=== PATIENT | female | born 1935 | race Caucasian/White ===

== ENCOUNTER 2019-11-14 15:39 | Inpatient (IN) | payer MEDICARE, OTHER ==
[2019-11-14] VITALS (9 sets, daily range): BP systolic 79–100; BP diastolic 35–53
[~2019-11-14] VITALS: Ht 167.6 cm; Wt 105.6 kg
[2019-11-14] MEDS ORDERED: OXYMETAZOLINE NASAL SPRAY 0.05%,30ML ONE (16:02)
[2019-11-14] MEDS ORDERED: PHENYLEPHRINE NASAL 1%, 15ML SPRAY ONE (16:03)
--- NOTE | 2019-11-14 16:07 | NUR ---
BIB BY TAYLOR FROM [facility] EMERGENCY DEPARTMENT FOR "ENT CONSULT"/"ABNORMAL LABS". PATIENT REPORTS HEAVY NOSE BLEED SINCE 10AM THIS MORNING. ASSESSED AT THE MO AND FOUND TO HAVE HEMOGLOBIN OF 4.2/ INR OF 6.2. MO ER PROVIDER DID NOT WANT TO ASSES TAMPONADED NOSE BLEED D/T ABNORMAL LABS AND NO ENT SPECIALIST IN HOUSE. GIVEN MG OF VITAMIN K/1L NS ON ARRIVAL ALERT/ORIENTED, NO BLEEDING FROM SITE (RIGHT NARE), HR 50-60, SBP 80 (MANUAL)
--- NOTE | 2019-11-14 16:08 | NUR ---
NOSE PACKING REMOVED BY PROVIDER-SMALL BLEED NOTED-AFRIN SPARYED ADMINISTERED BY PROVIDER, EPITAXIS NOSE CLAMP APPLIED
[2019-11-14] MEDS ORDERED: OXYMETAZOLINE NASAL SPRAY 0.05%, 15ML NAS ONE (16:30)
--- NOTE | 2019-11-14 16:55 | NUR ---
FECAL OCCULT VIA PROVIDER POSITIVE EPITAXIS CONTROLLED WITH AFRIN/NOSE CLAMP ONTO BEDPAN TO VOID-ROUGHLY 200ML HR REMAINS 50-70, MONITOR UNABLE TO REGISTER BP-MANUAL BP 90/45 SECOND 20 GA TO LEFT ARM PLACED POC REVIEWED WITH PROVIDER- TO ADMIN 2 UNITS PRBCS-, PROVIDER WOULD LIKE NO FURTHER VIT K (REPORTING ANALYST CLARIFIED PATIENT ONLY RECEIVED 5MG EARLIER FROM [facility])
[2019-11-14] MEDS: PANTOPRAZOLE 80 MG in SODIUM CHLORIDE 0.9% 100 ML IV SCH ×2 (16:59→21:01)
[2019-11-14] MEDS ORDERED: PANTOPRAZOLE 80 MG in SODIUM CHLORIDE 0.9% 50 ML IVPB ONE (16:59)
[2019-11-14 17:03] LABS: ANION GAP 9 mmol/L (5-15); CALCIUM 8.7 mg/dL (8.5-10.1); CHLORIDE 109 mmol/L (98-107); CREATININE 2.11 mg/dL (0.55-1.02)
--- NOTE | 2019-11-14 17:07 | NUR ---
RECEIVED CRITICAL RESULTS: H/H: 4.4,13.2, BUN 137 PROVIDER MADE AWARE
[2019-11-14] MEDS ORDERED: PHYTONADIONE 10 MG/ML, 1ML ONE (17:24)
[2019-11-14] MEDS ORDERED: SODIUM CHLORIDE 0.9% 1,000 ML IV SCH (17:30)
[2019-11-14 17:40] LABS: INTERNATIONAL NORMALIZED RATIO 5.58 (0.93-1.1); PROTHROMBIN TIME 60.2 Seconds (9.6-11.5)
[2019-11-14] MEDS: SODIUM CHLORIDE 0.9% 1,000 ML IV SCH (17:50)
--- NOTE | 2019-11-14 17:50 | NUR ---
pharmacy called for protonix bolus and gtt- to deliver shortly
--- NOTE | 2019-11-14 17:50 | NUR ---
AFTER BLOOD ADMIN CONSENT OBTAINED-1 UNIT PRBC STARTED ON IV PUMP REPEAT VS: 60-70, 90/35 (MANUAL) DR. VALVERDE AT BEDSIDE TO ADMIT ATEMPTING TO COMPLETE EXHAUSTIVE MED RECC
[2019-11-14] MEDS ORDERED: ALBUTEROL/IPRATROPIUM 2.5MG/0.5MG, 3 ML HHN PRN (18:00)
[2019-11-14] MEDS ORDERED: ONDANSETRON 2MG/ML, 2ML IVPush PRN (18:00)
[2019-11-14] MEDS ORDERED: PHENYLEPHRINE NASAL 1%, 15ML SPRAY NAS PRN (18:00)
--- NOTE | 2019-11-14 18:15 | NUR ---
Protonix administered per emar Med recc updated (on metoprolol-thus hr normal) Gi at bedside- no egd at this time as she is too high risk-will continue to follow Report to HARESH HENSON
[2019-11-14 18:21] LABS: FREE T4 (FREE THYROXINE) 1.07 ng/dL (0.76-1.46); TROPONIN I < 0.015 ng/mL (0.000-0.045)
[2019-11-14] MEDS ORDERED: OCTR50DI2 IM (18:34)
[2019-11-14] MEDS ORDERED: LISI2.5T PO (18:34)
[2019-11-14] MEDS ORDERED: METO25TA35 PO (18:34)
[2019-11-14] MEDS ORDERED: PANT20TA3 PO (18:34)
[2019-11-14] MEDS ORDERED: BUDE10.26 INH (18:34)
[2019-11-14] MEDS ORDERED: FLUT1DIS IH (18:34)
[2019-11-14] MEDS ORDERED: ALBU0.63 NEB (18:34)
[2019-11-14] MEDS ORDERED: FURO80TA3 PO (18:34)
[2019-11-14] MEDS ORDERED: ROSU10TA2 PO (18:34)
[2019-11-14] MEDS ORDERED: WARF-36 PO (18:34)
[2019-11-14] MEDS ORDERED: LEVO75TA5 PO (18:34)
--- NOTE | 2019-11-14 19:00 | NUR ---
LARGE FORMED BLACK STOOL NOTED-FULL PERICARE PERFORMED
--- NOTE | 2019-11-14 19:39 | NUR ---
CLARIFIED WHEN TO REMOVE EPITAXIS CLAMP-MD REPORTS "WHEN INR IMPROVED"
[2019-11-14] MEDS: BUDESONIDE 0.5 MG/2 ML INHA INH SCH (21:00)
[2019-11-14] MEDS: LATANOPROST OPHTH 0.005%, 2.5ML EACHEYE SCH (21:03)
[2019-11-14 22:20] LABS: MICROSCOPIC AUTO
[2019-11-14 22:23] LABS: CULTURE INDICATED? YES
[2019-11-14 22:30] LABS: CREATININE,URINE RANDOM 25.3 mg/dL
[2019-11-14 23:55] LABS: TROPONIN I < 0.015 ng/mL (0.000-0.045)
[2019-11-15] VITALS (17 sets, daily range): BP systolic 81–114; BP diastolic 43–78
[2019-11-15] MEDS: PANTOPRAZOLE 80 MG in SODIUM CHLORIDE 0.9% 100 ML IV SCH ×3 (03:59→14:45)
[2019-11-15] MEDS: SODIUM CHLORIDE 0.9% 1,000 ML IV SCH (06:10)
[2019-11-15 06:13] LABS: MEAN CORPUSCULAR HEMOGLOBIN 31.8 pg (27.0-34.8); MEAN CORPUSCULAR HGB CONC 33.1 g/dL (32.4-35.8); MEAN CORPUSCULAR VOLUME 95.9 fL (80-100); MEAN PLATELET VOLUME 6.6 fL (7.4-10.4); PLATELET COUNT 130 x10^3/uL (130-400); RED BLOOD COUNT 1.59 x10^6/uL (3.82-5.3); RED CELL DISTRIBUTION WIDTH 21.9 % (9.6-15.2)
[2019-11-15 06:19] LABS: ANION GAP 9 mmol/L (5-15); CALCIUM 8.5 mg/dL (8.5-10.1); CHLORIDE 113 mmol/L (98-107)
[2019-11-15 06:24] LABS: CREATININE 1.96 mg/dL (0.55-1.02)
[2019-11-15 06:32] LABS: MD YES
[2019-11-15] MEDS: CEFTRIAXONE PMX 1GM/50ML 50 ML IV SCH (06:34)
[2019-11-15] MEDS: LEVOTHYROXINE 75 MCG TABLET PO SCH (06:34)
[2019-11-15 06:35] LABS: BASOS#(MANUAL) 0.04 x10^3/uL (0-0.1); BASOS% (MANUAL) 1 % (0-1); LYMPH#(MANUAL) 0.66 x10^3/uL (1-3.4); LYMPHS% (MANUAL) 17 % (22-44); MONOS#(MANUAL) 0.35 x10^3/uL (0.3-2.7); MONOS% (MANUAL) 9 % (2-9); NRBC % (MANUAL) 1 % (0-1); SEG#(MANUAL) 2.85 x10^3/uL (1.8-6.8); SEGS% (MANUAL) 73 % (42-75)
[2019-11-15 06:36] LABS: ANISOCYTOSIS 2+; OVALOCYTES 1+; POLYCHROMASIA 1+
[2019-11-15 06:39] LABS: <PLATELET ESTIMATE> ADEQUATE; <PLT MORPHOLOGY> NORMAL PLT MORPH
[2019-11-15] MEDS: BUDESONIDE 0.5 MG/2 ML INHA INH SCH ×2 (11:15→20:44)
[2019-11-15 12:42] LABS: INTERNATIONAL NORMALIZED RATIO 2.45 (0.93-1.1); PROTHROMBIN TIME 26.2 Seconds (9.6-11.5)
[2019-11-15] MEDS: TIMOLOL OPHTH 0.5%, 5ML EACHEYE SCH (13:57)
[2019-11-15] MEDS ORDERED: FUROSEMIDE 20 MG/2 ML IV ONE (20:00)
[2019-11-15] MEDS: LATANOPROST OPHTH 0.005%, 2.5ML EACHEYE SCH (22:14)
[2019-11-16] MEDS: PANTOPRAZOLE 80 MG in SODIUM CHLORIDE 0.9% 100 ML IV SCH ×3 (00:34→19:51)
[2019-11-16 02:08] LABS: MEAN CORPUSCULAR HEMOGLOBIN 31.4 pg (27.0-34.8); MEAN CORPUSCULAR HGB CONC 33.3 g/dL (32.4-35.8); MEAN CORPUSCULAR VOLUME 94.3 fL (80-100); MEAN PLATELET VOLUME 7.2 fL (7.4-10.4); PLATELET COUNT 128 x10^3/uL (130-400); RED BLOOD COUNT 2.41 x10^6/uL (3.82-5.3)
[2019-11-16 02:19] LABS: ANION GAP 9 mmol/L (5-15); CALCIUM 8.6 mg/dL (8.5-10.1); CHLORIDE 112 mmol/L (98-107); CREATININE 1.77 mg/dL (0.55-1.02)
[2019-11-16 02:40] LABS: MD YES
[2019-11-16 02:45] LABS: EOS#(MANUAL) 0.04 x10^3/uL (0.0-0.4); EOS% (MANUAL) 1 % (1-7); LYMPH#(MANUAL) 0.27 x10^3/uL (1-3.4); LYMPHS% (MANUAL) 7 % (22-44); MONOS#(MANUAL) 0.27 x10^3/uL (0.3-2.7); MONOS% (MANUAL) 7 % (2-9); SEG#(MANUAL) 3.23 x10^3/uL (1.8-6.8); SEGS% (MANUAL) 85 % (42-75)
[2019-11-16 02:46] LABS: ANISOCYTOSIS 1+; MICROCYTOSIS 1+
[2019-11-16 02:47] LABS: <PLATELET ESTIMATE> DECREASED; <PLT MORPHOLOGY> NORMAL PLT MORPH
[2019-11-16 04:00] VITALS: BP 89/54
[2019-11-16] MEDS: LEVOTHYROXINE 75 MCG TABLET PO SCH (05:41)
[2019-11-16] MEDS: CEFTRIAXONE PMX 1GM/50ML 50 ML IV SCH (05:41)
[2019-11-16] MEDS: BUDESONIDE 0.5 MG/2 ML INHA INH SCH ×2 (08:57→19:47)
[2019-11-16] MEDS ORDERED: ALBUTEROL/IPRATROPIUM 2.5MG/0.5MG, 3 ML HHN SCH (09:00)
[2019-11-16] MEDS ORDERED: Enoxaparin 1 mg/kg protocol SQ SCH (10:00)
[2019-11-16] MEDS: TIMOLOL OPHTH 0.5%, 5ML EACHEYE SCH (10:24)
[2019-11-16] MEDS: ENOXAPARIN 100 MG/ML SQ SCH (10:25)
[2019-11-16] MEDS ORDERED: ENOXAPARIN 100 MG/ML SQ SCH (10:30)
[2019-11-16] MEDS ORDERED: [UNRECOGNIZED DRUG - OTHER] PO SCH (10:30)
[2019-11-16 12:30] VITALS: BP 106/67
[2019-11-16 16:00] VITALS: BP 123/71
[2019-11-16 18:48] VITALS: BP 107/72
[2019-11-16] MEDS: ALBUTEROL SULFATE 2.5 MG/3 ML NPPB PRN (19:47)
[2019-11-16] MEDS: LATANOPROST OPHTH 0.005%, 2.5ML EACHEYE SCH (21:09)
[2019-11-17] VITALS (9 sets, daily range): BP systolic 92–128; BP diastolic 46–78
[2019-11-17] MEDS: ALBUTEROL SULFATE 2.5 MG/3 ML NPPB PRN ×2 (00:02→07:01)
[2019-11-17 05:27] LABS: CHLORIDE 114 mmol/L (98-107)
[2019-11-17 05:35] LABS: ALBUMIN 2.4 g/dL (3.4-5.0); ANION GAP 6 mmol/L (5-15); CALCIUM 8.8 mg/dL (8.5-10.1); CREATININE 1.52 mg/dL (0.55-1.02)
[2019-11-17] MEDS: LEVOTHYROXINE 75 MCG TABLET PO SCH (05:45)
[2019-11-17 05:52] LABS: MEAN CORPUSCULAR HEMOGLOBIN 31.7 pg (27.0-34.8); MEAN CORPUSCULAR HGB CONC 33.2 g/dL (32.4-35.8); MEAN CORPUSCULAR VOLUME 95.3 fL (80-100); MEAN PLATELET VOLUME 7.1 fL (7.4-10.4); PLATELET COUNT 119 x10^3/uL (130-400); RED BLOOD COUNT 2.21 x10^6/uL (3.82-5.3)
[2019-11-17 05:54] LABS: RED CELL DISTRIBUTION WIDTH 19.5 % (9.6-15.2)
[2019-11-17] MEDS: CEFTRIAXONE PMX 1GM/50ML 50 ML IV SCH (05:55)
[2019-11-17] MEDS: PANTOPRAZOLE 80 MG in SODIUM CHLORIDE 0.9% 100 ML IV SCH ×2 (06:02→16:39)
[2019-11-17 06:27] LABS: BASOPHILS # (AUTO) 0.01 x10^3/uL (0-0.1); BASOPHILS % (AUTO) 0 % (0-1); EOSINOPHILS # (AUTO) 0.07 x10^3/uL (0-0.4); EOSINOPHILS % (AUTO) 2 % (1-7); LYMPHOCYTES # (AUTO) 0.53 x10^3/uL (1-3.4); LYMPHOCYTES % (AUTO) 14 % (22-44); MD MORPH REVIEW ONLY; MONOCYTES # (AUTO) 0.35 x10^3/uL (0.2-0.8); MONOCYTES % (AUTO) 9 % (2-9); NEUTROPHILS % (AUTO) 74 % (42-75)
[2019-11-17 06:28] LABS: <PLATELET ESTIMATE> DECREASED; <PLT MORPHOLOGY> NORMAL PLT MORPH; ANISOCYTOSIS 1+; MICROCYTOSIS 1+; OVALOCYTES 1+; POLYCHROMASIA 1+
[2019-11-17] MEDS: BUDESONIDE 0.5 MG/2 ML INHA INH SCH ×2 (07:01→21:00)
[2019-11-17] MEDS: TIMOLOL OPHTH 0.5%, 5ML EACHEYE SCH (08:35)
[2019-11-17] MEDS: ENOXAPARIN 100 MG/ML SQ SCH (10:32)
[2019-11-17 13:54] LABS: INTERNATIONAL NORMALIZED RATIO 2.61 (0.93-1.1); PROTHROMBIN TIME 27.9 Seconds (9.6-11.5)
[2019-11-17] MEDS: LATANOPROST OPHTH 0.005%, 2.5ML EACHEYE SCH (20:24)
[2019-11-18] MEDS: ACETAMINOPHEN 325 MG TABLET PO PRN ×2 (00:26→23:30)
[2019-11-18 00:50] VITALS: BP 112/73
[2019-11-18] MEDS: PANTOPRAZOLE 80 MG in SODIUM CHLORIDE 0.9% 100 ML IV SCH ×3 (02:15→22:10)
[2019-11-18 05:23] LABS: INTERNATIONAL NORMALIZED RATIO 2.95 (0.93-1.1); PROTHROMBIN TIME 31.6 Seconds (9.6-11.5)
[2019-11-18 05:25] LABS: ANION GAP 7 mmol/L (5-15); CALCIUM 8.7 mg/dL (8.5-10.1); CHLORIDE 113 mmol/L (98-107); CREATININE 1.38 mg/dL (0.55-1.02); MEAN CORPUSCULAR HEMOGLOBIN 31.7 pg (27.0-34.8); MEAN CORPUSCULAR HGB CONC 32.9 g/dL (32.4-35.8); MEAN CORPUSCULAR VOLUME 96.2 fL (80-100); PLATELET COUNT 127 x10^3/uL (130-400); RED BLOOD COUNT 2.55 x10^6/uL (3.82-5.3); RED CELL DISTRIBUTION WIDTH 19.2 % (9.6-15.2)
[2019-11-18] MEDS: LEVOTHYROXINE 75 MCG TABLET PO SCH (05:36)
[2019-11-18 05:57] LABS: BASOPHILS % (AUTO) 0 % (0-1); EOSINOPHILS % (AUTO) 3 % (1-7); LYMPHOCYTES # (AUTO) 0.47 x10^3/uL (1-3.4); LYMPHOCYTES % (AUTO) 15 % (22-44); MD SCAN; MONOCYTES # (AUTO) 0.26 x10^3/uL (0.2-0.8); MONOCYTES % (AUTO) 8 % (2-9); NEUTROPHILS # (AUTO) 2.25 x10^3/uL (1.8-6.8); NEUTROPHILS % (AUTO) 73 % (42-75)
[2019-11-18 07:34] VITALS: BP 114/71
[2019-11-18] MEDS: TIMOLOL OPHTH 0.5%, 5ML EACHEYE SCH (08:37)
[2019-11-18] MEDS: ENOXAPARIN 100 MG/ML SQ SCH (08:37)
[2019-11-18] MEDS: BUDESONIDE 0.5 MG/2 ML INHA INH SCH ×2 (10:20→19:10)
[2019-11-18 14:28] VITALS: BP 109/61
[2019-11-18] MEDS: FERROUS SULFATE 325 MG TABLET PO SCH (16:49)
[2019-11-18] MEDS: LATANOPROST OPHTH 0.005%, 2.5ML EACHEYE SCH (20:12)
[2019-11-18] MEDS: DOCUSATE 100 MG CAPSULE PO SCH (20:12)
[2019-11-18 20:26] VITALS: BP 99/57
[2019-11-18] MEDS: DIPHENHYDRAMINE 25 MG CAPSULE PO PRN (23:30)
[2019-11-19 02:05] VITALS: BP 98/66
[2019-11-19 04:40] LABS: MEAN CORPUSCULAR HEMOGLOBIN 31.8 pg (27.0-34.8); MEAN CORPUSCULAR HGB CONC 32.3 g/dL (32.4-35.8); MEAN CORPUSCULAR VOLUME 98.4 fL (80-100); PLATELET COUNT 130 x10^3/uL (130-400); RED BLOOD COUNT 2.44 x10^6/uL (3.82-5.3); RED CELL DISTRIBUTION WIDTH 19.9 % (9.6-15.2)
[2019-11-19 04:43] LABS: INTERNATIONAL NORMALIZED RATIO 2.47 (0.93-1.1); PROTHROMBIN TIME 26.4 Seconds (9.6-11.5)
[2019-11-19 04:47] LABS: ANION GAP 2 mmol/L (5-15); CALCIUM 8.6 mg/dL (8.5-10.1); CHLORIDE 115 mmol/L (98-107); CREATININE 1.38 mg/dL (0.55-1.02)
[2019-11-19 05:42] LABS: BASOPHILS # (AUTO) 0.01 x10^3/uL (0-0.1); BASOPHILS % (AUTO) 1 % (0-1); EOSINOPHILS # (AUTO) 0.09 x10^3/uL (0-0.4); EOSINOPHILS % (AUTO) 3 % (1-7); LYMPHOCYTES # (AUTO) 0.52 x10^3/uL (1-3.4); LYMPHOCYTES % (AUTO) 18 % (22-44); MD SCAN; MONOCYTES # (AUTO) 0.26 x10^3/uL (0.2-0.8); MONOCYTES % (AUTO) 9 % (2-9); NEUTROPHILS # (AUTO) 2.06 x10^3/uL (1.8-6.8); NEUTROPHILS % (AUTO) 70 % (42-75)
[2019-11-19] MEDS: LEVOTHYROXINE 75 MCG TABLET PO SCH (05:53)
[2019-11-19 07:55] VITALS: BP 102/53
[2019-11-19] MEDS: BUDESONIDE 0.5 MG/2 ML INHA INH SCH ×2 (09:00→20:24)
[2019-11-19] MEDS: ENOXAPARIN 100 MG/ML SQ SCH (10:24)
[2019-11-19] MEDS: DOCUSATE 100 MG CAPSULE PO SCH ×2 (10:24→20:40)
[2019-11-19] MEDS: FERROUS SULFATE 325 MG TABLET PO SCH ×2 (10:24→17:50)
[2019-11-19] MEDS: PANTOPRAZOLE 80 MG in SODIUM CHLORIDE 0.9% 100 ML IV SCH (10:25)
[2019-11-19] MEDS: TIMOLOL OPHTH 0.5%, 5ML EACHEYE SCH (10:26)
[2019-11-19] MEDS ORDERED: WARFARIN BIOPROSTHETIC VALVE PROTOCOL 2-3 XX PRN ×2 (14:30→15:00)
[2019-11-19 15:33] VITALS: BP 122/74
[2019-11-19] MEDS ORDERED: WARFARIN 5 MG TABLET PO-COUM ONE (18:00)
[2019-11-19] MEDS: ALBUTEROL SULFATE 2.5 MG/3 ML NPPB PRN (20:24)
[2019-11-19] MEDS: LATANOPROST OPHTH 0.005%, 2.5ML EACHEYE SCH (20:40)
[2019-11-19 20:47] VITALS: BP 113/76
[2019-11-19] MEDS: DIPHENHYDRAMINE 25 MG CAPSULE PO PRN (20:51)
[2019-11-19] MEDS: ACETAMINOPHEN 325 MG TABLET PO PRN (20:51)
[2019-11-20 01:08] VITALS: BP 127/91
[2019-11-20 05:09] LABS: INTERNATIONAL NORMALIZED RATIO 1.37 (0.93-1.1); PROTHROMBIN TIME 14.6 Seconds (9.6-11.5)
[2019-11-20 05:14] LABS: CALCIUM 8.7 mg/dL (8.5-10.1); CHLORIDE 116 mmol/L (98-107)
[2019-11-20 05:18] LABS: ANION GAP 5 mmol/L (5-15); CREATININE 1.31 mg/dL (0.55-1.02)
[2019-11-20 05:19] LABS: MEAN CORPUSCULAR HEMOGLOBIN 32.2 pg (27.0-34.8); MEAN CORPUSCULAR HGB CONC 33.1 g/dL (32.4-35.8); MEAN CORPUSCULAR VOLUME 97.3 fL (80-100); MEAN PLATELET VOLUME 7.4 fL (7.4-10.4); PLATELET COUNT 110 x10^3/uL (130-400); RED BLOOD COUNT 2.25 x10^6/uL (3.82-5.3)
[2019-11-20] MEDS: PANTOPRAZOLE 40MG TABLET PO SCH (05:28)
[2019-11-20] MEDS: LEVOTHYROXINE 75 MCG TABLET PO SCH (05:28)
[2019-11-20 05:59] LABS: BASOPHILS # (AUTO) 0.01 x10^3/uL (0-0.1); BASOPHILS % (AUTO) 1 % (0-1); EOSINOPHILS # (AUTO) 0.08 x10^3/uL (0-0.4); EOSINOPHILS % (AUTO) 3 % (1-7); LYMPHOCYTES # (AUTO) 0.46 x10^3/uL (1-3.4); LYMPHOCYTES % (AUTO) 19 % (22-44); MD SCAN; MONOCYTES # (AUTO) 0.22 x10^3/uL (0.2-0.8); MONOCYTES % (AUTO) 9 % (2-9); NEUTROPHILS # (AUTO) 1.67 x10^3/uL (1.8-6.8); NEUTROPHILS % (AUTO) 68 % (42-75)
[2019-11-20 07:02] VITALS: BP 114/71
[2019-11-20] MEDS: BUDESONIDE 0.5 MG/2 ML INHA INH SCH ×2 (09:45→20:01)
[2019-11-20] MEDS: ENOXAPARIN 100 MG/ML SQ SCH (09:56)
[2019-11-20] MEDS: DOCUSATE 100 MG CAPSULE PO SCH ×2 (09:57→20:28)
[2019-11-20] MEDS: FERROUS SULFATE 325 MG TABLET PO SCH ×2 (09:57→16:45)
[2019-11-20] MEDS: TIMOLOL OPHTH 0.5%, 5ML EACHEYE SCH (09:58)
[2019-11-20] MEDS ORDERED: BISACODYL 10 MG SUPP PR PRN (10:30)
[2019-11-20 12:59] LABS: BASOPHILS # (AUTO) 0.01 x10^3/uL (0-0.1); BASOPHILS % (AUTO) 0 % (0-1); EOSINOPHILS # (AUTO) 0.09 x10^3/uL (0-0.4); EOSINOPHILS % (AUTO) 2 % (1-7); LYMPHOCYTES # (AUTO) 0.44 x10^3/uL (1-3.4); LYMPHOCYTES % (AUTO) 12 % (22-44); MD NO; MEAN CORPUSCULAR HEMOGLOBIN 32.4 pg (27.0-34.8); MEAN CORPUSCULAR HGB CONC 32.8 g/dL (32.4-35.8); MEAN CORPUSCULAR VOLUME 98.9 fL (80-100); MONOCYTES # (AUTO) 0.27 x10^3/uL (0.2-0.8); MONOCYTES % (AUTO) 8 % (2-9); NEUTROPHILS # (AUTO) 2.77 x10^3/uL (1.8-6.8); NEUTROPHILS % (AUTO) 77 % (42-75); PLATELET COUNT 137 x10^3/uL (130-400); RED BLOOD COUNT 2.34 x10^6/uL (3.82-5.3)
[2019-11-20 14:02] VITALS: BP 103/67
[2019-11-20] MEDS: POLYETHYLENE GLYCOL 17 GM PACKET PO SCH (16:00)
[2019-11-20] MEDS ORDERED: WARFARIN 2.5 MG TABLET PO-COUM ONE (18:00)
[2019-11-20] MEDS ORDERED: WARFARIN 2 MG TABLET PO-COUM ONE (18:00)
[2019-11-20 18:41] VITALS: BP 135/78
[2019-11-20] MEDS: LATANOPROST OPHTH 0.005%, 2.5ML EACHEYE SCH (20:28)
[2019-11-20] MEDS: DIPHENHYDRAMINE 25 MG CAPSULE PO PRN (20:31)
[2019-11-20] MEDS: ACETAMINOPHEN 325 MG TABLET PO PRN (20:31)
[2019-11-21 01:04] VITALS: BP 126/78
[2019-11-21 05:18] LABS: INTERNATIONAL NORMALIZED RATIO 1.33 (0.93-1.1); PROTHROMBIN TIME 14.1 Seconds (9.6-11.5)
[2019-11-21 05:21] LABS: MEAN CORPUSCULAR HEMOGLOBIN 32.1 pg (27.0-34.8); MEAN CORPUSCULAR HGB CONC 32.4 g/dL (32.4-35.8); MEAN CORPUSCULAR VOLUME 99.3 fL (80-100); PLATELET COUNT 115 x10^3/uL (130-400); RED CELL DISTRIBUTION WIDTH 20.4 % (9.6-15.2)
[2019-11-21 05:30] LABS: ANION GAP 3 mmol/L (5-15); CALCIUM 8.7 mg/dL (8.5-10.1); CHLORIDE 115 mmol/L (98-107)
[2019-11-21] MEDS: LEVOTHYROXINE 75 MCG TABLET PO SCH (05:34)
[2019-11-21] MEDS: PANTOPRAZOLE 40MG TABLET PO SCH (05:34)
[2019-11-21 06:13] LABS: BASOPHILS # (AUTO) 0.01 x10^3/uL (0-0.1); BASOPHILS % (AUTO) 1 % (0-1); EOSINOPHILS # (AUTO) 0.09 x10^3/uL (0-0.4); EOSINOPHILS % (AUTO) 4 % (1-7); LYMPHOCYTES # (AUTO) 0.58 x10^3/uL (1-3.4); LYMPHOCYTES % (AUTO) 24 % (22-44); MD MORPH REVIEW ONLY; MONOCYTES # (AUTO) 0.24 x10^3/uL (0.2-0.8); MONOCYTES % (AUTO) 10 % (2-9); NEUTROPHILS # (AUTO) 1.49 x10^3/uL (1.8-6.8); NEUTROPHILS % (AUTO) 62 % (42-75)
[2019-11-21 06:14] LABS: ANISOCYTOSIS 2+; OVALOCYTES 1+; POLYCHROMASIA 1+
[2019-11-21 06:15] LABS: <PLT MORPHOLOGY> NORMAL PLT MORPH
[2019-11-21 06:16] LABS: <PLATELET ESTIMATE> ADEQUATE
[2019-11-21] MEDS: FERROUS SULFATE 325 MG TABLET PO SCH ×2 (08:14→17:06)
[2019-11-21] MEDS: DOCUSATE 100 MG CAPSULE PO SCH ×2 (08:15→20:42)
[2019-11-21] MEDS: POLYETHYLENE GLYCOL 17 GM PACKET PO SCH (08:17)
[2019-11-21] MEDS: TIMOLOL OPHTH 0.5%, 5ML EACHEYE SCH (08:26)
[2019-11-21 08:38] VITALS: BP 115/67
[2019-11-21] MEDS: BUDESONIDE 0.5 MG/2 ML INHA INH SCH ×3 (09:00→19:02)
[2019-11-21] MEDS: ENOXAPARIN 100 MG/ML SQ SCH ×2 (10:18→20:42)
[2019-11-21 14:10] VITALS: BP 110/70
[2019-11-21] MEDS ORDERED: WARFARIN 2 MG TABLET PO-COUM ONE (18:00)
[2019-11-21 20:23] VITALS: BP 109/74
[2019-11-21] MEDS: ACETAMINOPHEN 325 MG TABLET PO PRN (20:42)
[2019-11-21] MEDS: DIPHENHYDRAMINE 25 MG CAPSULE PO PRN (20:42)
[2019-11-21] MEDS: LATANOPROST OPHTH 0.005%, 2.5ML EACHEYE SCH (20:43)
[2019-11-22] VITALS (8 sets, daily range): BP systolic 92–126; BP diastolic 54–81
[2019-11-22] MEDS: PANTOPRAZOLE 40MG TABLET PO SCH (05:32)
[2019-11-22] MEDS: LEVOTHYROXINE 75 MCG TABLET PO SCH (05:33)
[2019-11-22 07:24] LABS: ANION GAP 4 mmol/L (5-15); CALCIUM 9.2 mg/dL (8.5-10.1); CHLORIDE 112 mmol/L (98-107); PROTHROMBIN TIME 21.4 Seconds (9.6-11.5)
[2019-11-22 07:51] LABS: MEAN CORPUSCULAR HEMOGLOBIN 32.7 pg (27.0-34.8); MEAN CORPUSCULAR HGB CONC 32.7 g/dL (32.4-35.8); MEAN CORPUSCULAR VOLUME 99.8 fL (80-100); MEAN PLATELET VOLUME 6.8 fL (7.4-10.4); PLATELET COUNT 129 x10^3/uL (130-400); RED CELL DISTRIBUTION WIDTH 20.2 % (9.6-15.2)
[2019-11-22 07:56] LABS: BASOPHILS # (AUTO) 0.02 x10^3/uL (0-0.1); BASOPHILS % (AUTO) 1 % (0-1); EOSINOPHILS % (AUTO) 4 % (1-7); LYMPHOCYTES # (AUTO) 0.43 x10^3/uL (1-3.4); LYMPHOCYTES % (AUTO) 18 % (22-44); MD SCAN; MONOCYTES # (AUTO) 0.21 x10^3/uL (0.2-0.8); MONOCYTES % (AUTO) 9 % (2-9); NEUTROPHILS # (AUTO) 1.65 x10^3/uL (1.8-6.8); NEUTROPHILS % (AUTO) 69 % (42-75)
[2019-11-22] MEDS: DOCUSATE 100 MG CAPSULE PO SCH ×2 (08:15→20:56)
[2019-11-22] MEDS: FERROUS SULFATE 325 MG TABLET PO SCH ×2 (08:15→17:31)
[2019-11-22] MEDS: ENOXAPARIN 100 MG/ML SQ SCH ×2 (08:16→20:57)
[2019-11-22] MEDS: POLYETHYLENE GLYCOL 17 GM PACKET PO SCH (08:16)
[2019-11-22] MEDS: TIMOLOL OPHTH 0.5%, 5ML EACHEYE SCH (08:17)
[2019-11-22] MEDS: BUDESONIDE 0.5 MG/2 ML INHA INH SCH ×2 (09:50→19:21)
[2019-11-22] MEDS ORDERED: WARFARIN 5 MG TABLET PO-COUM ONE (18:00)
[2019-11-22] MEDS: DIPHENHYDRAMINE 25 MG CAPSULE PO PRN (20:55)
[2019-11-22] MEDS: LATANOPROST OPHTH 0.005%, 2.5ML EACHEYE SCH ×2 (20:55→21:02)
[2019-11-22] MEDS: ACETAMINOPHEN 325 MG TABLET PO PRN (20:55)
[2019-11-23 00:11] VITALS: BP 108/71
[2019-11-23] MEDS: PANTOPRAZOLE 40MG TABLET PO SCH (05:07)
[2019-11-23] MEDS: LEVOTHYROXINE 75 MCG TABLET PO SCH (05:07)
[2019-11-23 06:28] LABS: INTERNATIONAL NORMALIZED RATIO 2.21 (0.93-1.1); PROTHROMBIN TIME 23.6 Seconds (9.6-11.5)
[2019-11-23 06:31] LABS: ANION GAP 3 mmol/L (5-15); CALCIUM 9.4 mg/dL (8.5-10.1); CHLORIDE 112 mmol/L (98-107); CREATININE 1.26 mg/dL (0.55-1.02)
[2019-11-23 06:34] LABS: MEAN CORPUSCULAR HEMOGLOBIN 32.2 pg (27.0-34.8); MEAN CORPUSCULAR HGB CONC 32.5 g/dL (32.4-35.8); MEAN CORPUSCULAR VOLUME 99.1 fL (80-100); MEAN PLATELET VOLUME 6.5 fL (7.4-10.4); PLATELET COUNT 141 x10^3/uL (130-400); RED BLOOD COUNT 2.23 x10^6/uL (3.82-5.3); RED CELL DISTRIBUTION WIDTH 20.3 % (9.6-15.2)
[2019-11-23 07:39] VITALS: BP 110/68
[2019-11-23 07:52] LABS: MD YES
[2019-11-23 07:58] LABS: BAND#(MANUAL) 0.02 x10^3/uL; BANDS%(MANUAL) 1 % (0-7); BASOS#(MANUAL) 0.05 x10^3/uL (0-0.1); BASOS% (MANUAL) 2 % (0-1); EOS#(MANUAL) 0.05 x10^3/uL (0.0-0.4); EOS% (MANUAL) 2 % (1-7); LYMPH#(MANUAL) 0.58 x10^3/uL (1-3.4); LYMPHS% (MANUAL) 25 % (22-44); METAMYELOCYTES# (MANUAL) 0.05 x10^3/uL (0-0); METAMYELOCYTES% (MANUAL) 2 % (0-1); MONOS#(MANUAL) 0.32 x10^3/uL (0.3-2.7); MONOS% (MANUAL) 14 % (2-9); REACTIVE LYMPHS # (MANUAL) 0.02 x10^3/uL (0-0); REACTIVE LYMPHS % (MANUAL) 1 % (0-0); SEG#(MANUAL) 1.22 x10^3/uL (1.8-6.8); SEGS% (MANUAL) 53 % (42-75)
[2019-11-23 07:59] LABS: ANISOCYTOSIS 2+
[2019-11-23 08:00] LABS: <PLATELET ESTIMATE> ADEQUATE; <PLT MORPHOLOGY> NORMAL PLT MORPH; OVALOCYTES 1+; POLYCHROMASIA 1+
[2019-11-23] MEDS: POLYETHYLENE GLYCOL 17 GM PACKET PO SCH (09:00)
[2019-11-23] MEDS: BUDESONIDE 0.5 MG/2 ML INHA INH SCH ×2 (09:15→20:07)
[2019-11-23] MEDS: DOCUSATE 100 MG CAPSULE PO SCH ×2 (09:48→20:59)
[2019-11-23] MEDS: ENOXAPARIN 100 MG/ML SQ SCH ×2 (09:48→21:41)
[2019-11-23] MEDS: FERROUS SULFATE 325 MG TABLET PO SCH ×2 (09:49→17:16)
[2019-11-23] MEDS: TIMOLOL OPHTH 0.5%, 5ML EACHEYE SCH (09:52)
[2019-11-23] MEDS ORDERED: FUROSEMIDE 20 MG TABLET PO ONE (11:30)
[2019-11-23 14:06] VITALS: BP 103/62
[2019-11-23] MEDS ORDERED: WARFARIN 3 MG TABLET PO-COUM ONE (18:00)
[2019-11-23 18:30] VITALS: BP 106/73
[2019-11-23] MEDS: ALBUTEROL SULFATE 2.5 MG/3 ML NPPB PRN (20:07)
[2019-11-23] MEDS: DIPHENHYDRAMINE 25 MG CAPSULE PO PRN (20:58)
[2019-11-23] MEDS: ACETAMINOPHEN 325 MG TABLET PO PRN (20:58)
[2019-11-23] MEDS: LATANOPROST OPHTH 0.005%, 2.5ML EACHEYE SCH (20:59)
[2019-11-24 00:11] VITALS: BP 100/65
[2019-11-24 05:47] LABS: ANION GAP 2 mmol/L (5-15); CALCIUM 9.3 mg/dL (8.5-10.1); CHLORIDE 112 mmol/L (98-107)
[2019-11-24 05:48] LABS: CREATININE 1.27 mg/dL (0.55-1.02)
[2019-11-24 05:51] LABS: INTERNATIONAL NORMALIZED RATIO 3.12 (0.93-1.1); PROTHROMBIN TIME 33.5 Seconds (9.6-11.5)
[2019-11-24] MEDS: LEVOTHYROXINE 75 MCG TABLET PO SCH (06:08)
[2019-11-24] MEDS: PANTOPRAZOLE 40MG TABLET PO SCH (06:08)
[2019-11-24 06:15] LABS: MEAN CORPUSCULAR HGB CONC 32.5 g/dL (32.4-35.8); MEAN CORPUSCULAR VOLUME 98.5 fL (80-100); RED BLOOD COUNT 2.12 x10^6/uL (3.82-5.3); RED CELL DISTRIBUTION WIDTH 20.3 % (9.6-15.2)
[2019-11-24 06:17] LABS: MEAN PLATELET VOLUME 7.3 fL (7.4-10.4); PLATELET COUNT 135 x10^3/uL (130-400)
[2019-11-24 06:26] LABS: MD YES
[2019-11-24 06:28] LABS: BASOS#(MANUAL) 0.02 x10^3/uL (0-0.1); BASOS% (MANUAL) 1 % (0-1); EOS#(MANUAL) 0.05 x10^3/uL (0.0-0.4); EOS% (MANUAL) 2 % (1-7); LYMPH#(MANUAL) 0.41 x10^3/uL (1-3.4); LYMPHS% (MANUAL) 17 % (22-44); MONOS#(MANUAL) 0.19 x10^3/uL (0.3-2.7); MONOS% (MANUAL) 8 % (2-9); SEG#(MANUAL) 1.73 x10^3/uL (1.8-6.8); SEGS% (MANUAL) 72 % (42-75)
[2019-11-24 06:29] LABS: ANISOCYTOSIS 2+; OVALOCYTES 1+; POLYCHROMASIA 1+
[2019-11-24 06:30] LABS: <PLATELET ESTIMATE> ADEQUATE; <PLT MORPHOLOGY> NORMAL PLT MORPH
[2019-11-24 06:48] VITALS: BP 99/67
[2019-11-24] MEDS: FERROUS SULFATE 325 MG TABLET PO SCH ×2 (09:28→16:47)
[2019-11-24] MEDS: TIMOLOL OPHTH 0.5%, 5ML EACHEYE SCH (09:28)
[2019-11-24] MEDS: DOCUSATE 100 MG CAPSULE PO SCH ×2 (09:29→20:15)
[2019-11-24] MEDS: POLYETHYLENE GLYCOL 17 GM PACKET PO SCH (09:33)
[2019-11-24] MEDS: ENOXAPARIN 100 MG/ML SQ SCH (09:35)
[2019-11-24] MEDS ORDERED: [UNRECOGNIZED DRUG - REMARK] XX PRN (10:30)
[2019-11-24] MEDS ORDERED: PHARMACY MAY ADJ FOR RENAL FX MC PRN (10:30)
[2019-11-24 11:08] LABS: BILIRUBIN, DIRECT 0.1 mg/dL (0.1-0.2)
[2019-11-24 11:09] LABS: BILIRUBIN,INDIRECT 0.2 mg/dL (0.0-2.0); BILIRUBIN,TOTAL 0.3 mg/dL (0.2-1.0)
[2019-11-24] MEDS: BUDESONIDE 0.5 MG/2 ML INHA INH SCH ×2 (11:33→21:00)
[2019-11-24] MEDS: FOLIC ACID 1 MG TABLET PO SCH (12:22)
[2019-11-24] MEDS: FUROSEMIDE 20 MG TABLET PO SCH (12:25)
[2019-11-24 13:58] LABS: OCCULT BLOOD POSITIVE (NEGATIVE)
[2019-11-24 14:44] VITALS: BP 107/67
[2019-11-24] MEDS ORDERED: WARFARIN 2.5 MG TABLET PO-COUM ONE (18:00)
[2019-11-24 18:23] VITALS: BP 104/64
[2019-11-24] MEDS: LATANOPROST OPHTH 0.005%, 2.5ML EACHEYE SCH (20:14)
[2019-11-24] MEDS: DIPHENHYDRAMINE 25 MG CAPSULE PO PRN (20:15)
[2019-11-24] MEDS: ACETAMINOPHEN 325 MG TABLET PO PRN (20:15)
[2019-11-24] MEDS ORDERED: ENOXAPARIN 100 MG/ML SQ SCH (22:00)
[2019-11-25] VITALS (12 sets, daily range): BP systolic 94–118; BP diastolic 38–75
[2019-11-25] MEDS: PANTOPRAZOLE 40MG TABLET PO SCH (05:58)
[2019-11-25] MEDS: LEVOTHYROXINE 75 MCG TABLET PO SCH (05:58)
[2019-11-25 06:13] LABS: INTERNATIONAL NORMALIZED RATIO 3.44 (0.93-1.1); PROTHROMBIN TIME 36.9 Seconds (9.6-11.5)
[2019-11-25 06:18] LABS: MEAN CORPUSCULAR HEMOGLOBIN 33.9 pg (27.0-34.8); MEAN CORPUSCULAR HGB CONC 34.3 g/dL (32.4-35.8); MEAN CORPUSCULAR VOLUME 98.9 fL (80-100); MEAN PLATELET VOLUME 6.9 fL (7.4-10.4); PLATELET COUNT 137 x10^3/uL (130-400); RED BLOOD COUNT 1.98 x10^6/uL (3.82-5.3); RED CELL DISTRIBUTION WIDTH 19.6 % (9.6-15.2)
[2019-11-25 06:40] LABS: MD YES
[2019-11-25 06:44] LABS: ANISOCYTOSIS 1+; BASOS#(MANUAL) 0.05 x10^3/uL (0-0.1); BASOS% (MANUAL) 2 % (0-1); EOS#(MANUAL) 0.05 x10^3/uL (0.0-0.4); EOS% (MANUAL) 2 % (1-7); LYMPH#(MANUAL) 0.39 x10^3/uL (1-3.4); LYMPHS% (MANUAL) 17 % (22-44); MONOS#(MANUAL) 0.14 x10^3/uL (0.3-2.7); MONOS% (MANUAL) 6 % (2-9); OVALOCYTES 1+; SEG#(MANUAL) 1.68 x10^3/uL (1.8-6.8); SEGS% (MANUAL) 73 % (42-75)
[2019-11-25 06:45] LABS: <PLATELET ESTIMATE> ADEQUATE; <PLT MORPHOLOGY> NORMAL PLT MORPH; HYPOCHROMIA 1+; POLYCHROMASIA 1+
[2019-11-25] MEDS: BUDESONIDE 0.5 MG/2 ML INHA INH SCH ×2 (07:19→19:46)
[2019-11-25] MEDS: TIMOLOL OPHTH 0.5%, 5ML EACHEYE SCH (08:04)
[2019-11-25] MEDS: DOCUSATE 100 MG CAPSULE PO SCH ×2 (08:04→20:10)
[2019-11-25] MEDS: FERROUS SULFATE 325 MG TABLET PO SCH ×2 (08:04→17:07)
[2019-11-25] MEDS: POLYETHYLENE GLYCOL 17 GM PACKET PO SCH (08:05)
[2019-11-25] MEDS: FOLIC ACID 1 MG TABLET PO SCH (08:05)
[2019-11-25] MEDS: FUROSEMIDE 20 MG TABLET PO SCH (08:05)
[2019-11-25] MEDS ORDERED: FUROSEMIDE 20 MG/2 ML IV ONE (11:30)
[2019-11-25] MEDS ORDERED: WARFARIN 2.5 MG TABLET PO-COUM ONE (18:00)
[2019-11-25] MEDS: LATANOPROST OPHTH 0.005%, 2.5ML EACHEYE SCH (20:10)
[2019-11-25] MEDS: DIPHENHYDRAMINE 25 MG CAPSULE PO PRN (21:04)
[2019-11-25] MEDS: ACETAMINOPHEN 325 MG TABLET PO PRN (21:04)
[2019-11-26 00:51] VITALS: BP 102/69
[2019-11-26] MEDS: PANTOPRAZOLE 40MG TABLET PO SCH (05:11)
[2019-11-26] MEDS: LEVOTHYROXINE 75 MCG TABLET PO SCH (05:12)
[2019-11-26 05:32] LABS: MEAN CORPUSCULAR HEMOGLOBIN 31.9 pg (27.0-34.8); MEAN CORPUSCULAR HGB CONC 32.6 g/dL (32.4-35.8); MEAN CORPUSCULAR VOLUME 97.7 fL (80-100); MEAN PLATELET VOLUME 7.2 fL (7.4-10.4); PLATELET COUNT 140 x10^3/uL (130-400); RED BLOOD COUNT 2.43 x10^6/uL (3.82-5.3)
[2019-11-26 05:33] LABS: INTERNATIONAL NORMALIZED RATIO 2.5 (0.93-1.1); PROTHROMBIN TIME 26.7 Seconds (9.6-11.5)
[2019-11-26 06:19] LABS: MD YES
[2019-11-26 06:20] LABS: RED CELL DISTRIBUTION WIDTH 19.9 % (9.6-15.2)
[2019-11-26 06:22] LABS: EOS#(MANUAL) 0.06 x10^3/uL (0.0-0.4); EOS% (MANUAL) 2 % (1-7); SEG#(MANUAL) 1.91 x10^3/uL (1.8-6.8); SEGS% (MANUAL) 66 % (42-75)
[2019-11-26 06:23] LABS: ANISOCYTOSIS 1+; HYPOCHROMIA 1+; LYMPH#(MANUAL) 0.73 x10^3/uL (1-3.4); LYMPHS% (MANUAL) 25 % (22-44); MONOS% (MANUAL) 7 % (2-9); OVALOCYTES 1+; POLYCHROMASIA 1+
[2019-11-26 06:24] LABS: <PLATELET ESTIMATE> ADEQUATE; <PLT MORPHOLOGY> NORMAL PLT MORPH
[2019-11-26 07:05] VITALS: BP 112/69
[2019-11-26] MEDS ORDERED: POLYETHYLENE GLYCOL 17 GM PACKET PO PRN (08:00)
[2019-11-26] MEDS ORDERED: ACETAMINOPHEN 325 MG TABLET PO PRN (08:00)
[2019-11-26] MEDS: DOCUSATE 100 MG CAPSULE PO SCH (08:19)
[2019-11-26] MEDS: LACTOBACILLUS CHEW TABLET PO SCH ×2 (08:19→16:00)
[2019-11-26] MEDS: FUROSEMIDE 20 MG TABLET PO SCH (08:19)
[2019-11-26] MEDS: TIMOLOL OPHTH 0.5%, 5ML EACHEYE SCH (08:19)
[2019-11-26] MEDS: FOLIC ACID 1 MG TABLET PO SCH (08:19)
[2019-11-26] MEDS: BUDESONIDE 0.5 MG/2 ML INHA INH SCH (09:00)
[2019-11-26] MEDS ORDERED: FURO20TA3 PO (11:55)
[2019-11-26] MEDS ORDERED: ACET325T26 PO (11:55)
[2019-11-26] MEDS ORDERED: LEVO75TA PO (11:55)
[2019-11-26] MEDS ORDERED: DIPH25CA26 PO (11:55)
[2019-11-26] MEDS ORDERED: FERR-51 PO (11:55)
[2019-11-26] MEDS ORDERED: TIMO5DRO5 EACHEYE (11:55)
[2019-11-26] MEDS ORDERED: ACID1TAB7 PO (11:55)
[2019-11-26] MEDS ORDERED: POLY17PO5 PO (11:55)
[2019-11-26] MEDS ORDERED: LATA2.5D3 EACHEYE (11:55)
[2019-11-26 13:57] VITALS: BP 114/63
[2019-11-26] MEDS ORDERED: WARFARIN 2.5 MG TABLET PO-COUM ONE (18:00)
[2019-11-27] MEDS ORDERED: FERROUS SULFATE 325 MG TABLET PO SCH (17:00)
== END 2019-11-26 17:27 | DRG 377 ==
LOC: ED 16:57 → EDIP 16:58 → SUATTDRO 17:03 → ED 17:20 → 5SO 19:38 → 3N 11-16 15:32
PROVIDERS: ADMIT Hospitalist; ATTEND Internal Medicine
PROC: 30233N1 Transfusion of Nonautologous Red Blood Cells into Peripheral Vein, Percutaneous Approach (ICD-10-PCS; principal; 2019-11-14)
PROC: 30233K1 Transfusion of Nonautologous Frozen Plasma into Peripheral Vein, Percutaneous Approach (ICD-10-PCS; 2019-11-15)
PROC: 0T9B70Z Drainage of Bladder with Drainage Device, Via Natural or Artificial Opening (ICD-10-PCS; 2019-11-15)
DX: K92.2 Gastrointestinal hemorrhage, unspecified (principal); J96.21 Acute and chronic respiratory failure with hypoxia; I13.0 Hypertensive heart and chronic kidney disease with heart failure and stage 1 through stage 4 chronic kidney disease, or unspecified chronic kidney disease; D62 Acute posthemorrhagic anemia; I48.20 Chronic atrial fibrillation, unspecified; D68.69 Other thrombophilia; N18.4 Chronic kidney disease, stage 4 (severe); Z66 Do not resuscitate; E66.9 Obesity, unspecified; E03.9 Hypothyroidism, unspecified; I27.20 Pulmonary hypertension, unspecified; G47.30 Sleep apnea, unspecified; I25.10 Atherosclerotic heart disease of native coronary artery without angina pectoris; I27.81 Cor pulmonale (chronic); I27.29 Other secondary pulmonary hypertension; H40.9 Unspecified glaucoma; D69.6 Thrombocytopenia, unspecified; D72.819 Decreased white blood cell count, unspecified; R04.0 Epistaxis; G47.33 Obstructive sleep apnea (adult) (pediatric); Z95.2 Presence of prosthetic heart valve; Z79.01 Long term (current) use of anticoagulants; Z88.5 Allergy status to narcotic agent; Z87.891 Personal history of nicotine dependence; Z79.899 Other long term (current) drug therapy; Z95.5 Presence of coronary angioplasty implant and graft; Z68.37 Body mass index [BMI] 37.0-37.9, adult
CPT/HCPCS: 36415; 71045; 71250; 80048; 81001; 82040; 82247; 82248; 82272; 82436; 82570; 82607; 82728; 83010; 83540; 83550; 83605; 83615; 83735; 83880; 84100; 84133; 84300; 84439; 84443; 84484; 85014; 85018; 85025; 85610; 85730; 86850; 86900; 86923; 87077; 87086; 87186; 93005; 94640; 94660; 99291; G0378; J0696; J1650; J7613; J7626; C9113; J1940; J7030; P9016; P9017; Q0163